=== PATIENT | female | born 1960 | race Caucasian/White ===

== ENCOUNTER 2022-06-09 10:53 | Emergency (ER) | payer BC ==
[2022-06-09] MEDS ORDERED: Fentanyl 100 MCG/2 ML VIAL ONE (12:14)
== END 2022-06-09 13:21 | disposition home or self-care (01) ==
LOC: ERS 10:53
DX: S70.01XA Contusion of right hip, initial encounter (principal); E03.9 Hypothyroidism, unspecified; W18.2XXA Fall in (into) shower or empty bathtub, initial encounter; Y92.002 Bathroom of unspecified non-institutional (private) residence as the place of occurrence of the external cause; Z79.899 Other long term (current) drug therapy
CPT/HCPCS: 72170; 72192; 96374; J3010